=== PATIENT | male | born 1985 | race African-American/Black ===

== ENCOUNTER 2023-06-13 04:21 | Emergency (ER) | payer SELFPAY ==
[~2023-06-13] VITALS: Ht 185.4 cm; Wt 136.0 kg
[2023-06-13 04:28] VITALS: TEMP 99.3; O2SAT 98
[2023-06-13 05:30] VITALS: BP 153/90; PULSE 118; RESP 20
[2023-06-13] MEDS ORDERED: IBUPROFEN 800MG TABLET PO ONE (05:30)
[2023-06-13] MEDS ORDERED: IBUPROFEN 400MG TABLET PO NR (05:45)
[2023-06-13] MEDS ORDERED: NAPR-1176 MT (06:54)
[2023-06-13] MEDS ORDERED: GUAI600T44 MT (06:54)
== END 2023-06-13 07:14 | disposition home or self-care (01) ==
LOC: ER 04:21
DX: J06.9 Acute upper respiratory infection, unspecified (principal); J45.909 Unspecified asthma, uncomplicated
CPT/HCPCS: 99283; 87426; 87804 ×2; C9803